=== PATIENT | female | born 1980 | race Caucasian/White ===

== ENCOUNTER 2016-11-18 02:24 | Observation (INO) | payer OTHER ==
[2016-11-18] MEDS ORDERED: ONDANSETRON HCL INJ/PF 4 MG/2 ML SDV IV ONE (02:54)
--- NOTE | 2016-11-18 02:58 | ER Document Report ---
ED General - General Chief Complaint: Nausea/Vomiting Stated Complaint: VOMITING Time Seen by Provider: 11/18/16 02:48 Notes: Patient is a 35-year-old female who presents with complaint of nausea vomiting for the last 7 hours. Last year she was taken to this. She did not eat any undercooked food. No fevers. No abdominal pain. No diarrhea. Her kids had vomiting illness last week. She has had a cholecystectomy in the past. No other abdominal surgeries. No dysuria. She has had some intermittent back pain for just over a week. No hematuria that she is aware of. TRAVEL OUTSIDE OF THE [place] IN LAST 30 DAYS: No - Related Data Allergies/Adverse Reactions: clarithromycin [From Biaxin] Allergy (Verified 11/18/16 03:10) gatifloxacin [From Tequin] Allergy (Verified 11/18/16 03:10) metronidazole [From Flagyl] Allergy (Verified 11/18/16 03:10) nitrofurantoin [From Macrobid] Allergy (Verified 11/18/16 03:10) Sulfa (Sulfonamide Antibiotics) Allergy (Verified 11/18/16 03:10) sulfamethoxazole [From Bactrim] Allergy (Verified 11/18/16 03:10) trimethoprim [From Bactrim] Allergy (Verified 11/18/16 03:10) ivp dye Allergy (Uncoded 11/18/16 03:10) Past Medical History - Social History Smoking Status: Unknown if Ever Smoked Frequency of alcohol use: None Drug Abuse: None Family History: Reviewed & Not Pertinent Patient has suicidal ideation: No Patient has homicidal ideation: No Renal/ Medical History: Denies: Hx Peritoneal Dialysis Review of Systems - Review of Systems Notes: My Normal Review Basic REVIEW OF SYSTEMS: CONSTITUTIONAL : Denies fever, chills, or sweats. Denies recent illness. CARDIOVASCULAR: Denies chest pain. RESPIRATORY: Denies cough, cold, or chest congestion. Denies shortness of breath, difficulty breathing, or wheezing. GASTROINTESTINAL: Denies abdominal pain. Recurrent vomiting. GENITOURINARY: Denies difficulty urinating, painful urination, burning, frequency, or blood in urine. MUSCULOSKELETAL: Intermittent back pain. SKIN: Denies rash or skin lesions. NEUROLOGICAL: Denies altered mental status or loss of consciousness. ALL OTHER SYSTEMS REVIEWED AND NEGATIVE. Physical Exam - Vital signs Vitals: Temp Pulse Resp BP Pulse Ox 98.2 F 138 H 17 146/101 H 93 11/18/16 02:29 11/18/16 02:29 11/18/16 02:29 11/18/16 02:29 11/18/16 02:29 - Notes Notes: General Appearance: Well nourished, alert, cooperative, no acute distress, no obvious discomfort. Vitals: reviewed, See vital signs table. Head: no swelling or tenderness to the head Eyes: PERRL, EOMI, Conjuctiva clear Mouth: No decreasd moisture Neck: Supple, no neck tenderness, No thyromegaly Lungs: No wheezing, No rales, No rhonci, No accessory muscle use, good air exchange bilaterally. Heart: Tachycardic rate, Regular rythm, No murmur, no rub Abdomen: Normal BS, soft, No rigidity, No abdominal tenderness, No guarding, no rebound, no abdominal masses, no organomegaly Extremities: strength 5/5 in all extremities, good pulses in all extremities, no swelling or tenderness in the extremities, no edema. Skin: warm, dry, appropriate color, no rash Neuro: speech clear, oriented x 3, normal affect, responds appropriately to questions. Course - Vital Signs Vital signs: Temp Pulse Resp BP Pulse Ox 98.2 F 103 H 22 H 110/75 96 11/18/16 02:29 11/18/16 03:21 11/18/16 03:21 11/18/16 07:01 11/18/16 07:01 - Laboratory Result Diagrams: 11/18/16 02:55 11/18/16 02:55 Laboratory results interpreted by me: 11/18/16 11/18/16 11/18/16 02:55 02:55 02:55 WBC 12.1 H RBC 5.29 H Seg Neuts % (Manual) 94 H Band Neutrophils % 1 L Lymphocytes % (Manual) 4 L Monocytes % (Manual) 1 L Abs Neuts (Manual) 11.5 H Potassium 3.2 L Glucose 128 H Magnesium 1.5 L - Transfer of Care Notes: 11/18/16 07:30 My concern is that the patient's ambulation. He does not ambulate well on its own. Patient's younger son is at bedside and said he felt today because he was not using his walker he went to the bathroom. Patient and son both say that he does fairly well with a walker. Some of his ataxia could be related to a bulging disc most likely in his neck. I suspect that she does have some numbness going into his arms. On exam he does not have actual weakness in his legs or hands he does have neck pain as well as numbness going into his hands. I informed him that he really needs an MRI of his neck to investigate this further. He has no findings that would be consistent with a surgical emergency and therefore I do not think I need to transfer him to have an MRI performed. He has no urinary incontinence. He has no bowel incontinence. He was able to urinate here without any difficulty. All his blood work is normal appearing. His no signs of infection. He is very awake and alert his mind is very sharp. His youngest brother is at bedside and also is in very good health. I did talk to the patient about potentially considering a assisted living versus living family. Patient says he has a follow-up appointment with his doctor on Sunday and would like to discuss this further with his doctor Sunday. His brother is at bedside that he would help care for the patient look after him until he follows up with his doctor on Sunday. I did type up all my concerns in his discharge paperwork and told him to bring discharge paperwork with him to his doctor's appointment so that they can review it and see my concerns as well and hopefully arrange for the MRI. I encouraged patient to return to ER immediately if he has worsening of his symptoms or has any further concerns. Patient and his brother agree with plan and he will be discharged home. Dictation of this chart was performed using voice recognition software; therefore, there may be some unintended grammatical errors. Discharge - Discharge Clinical Impression: Hypokalemia, Hypomagnesemia Vomiting Qualifiers: Vomiting type: unspecified Vomiting Intractability: unspecified Nausea presence : with nausea Qualified Code(s): R11.2 - Nausea with vomiting, unspecified Condition: Good Additional Instructions: VOMITING: Vomiting (or nausea without vomiting) can be caused by many other different problems. It can mean that something's wrong with the stomach, such as ulcers or inflammation or the intestinal tract, such as appendicitis. But it can also be a symptom of a problem that has nothing to do with the stomach or intestines. Vomiting is common with severe headaches, earaches, tonsillitis, and kidney infections, etc. We see it with pneumonia or heart attacks. Drugs can cause nausea and vomiting. Many abdominal problems cause vomiting; for example, gallstones, kidney stones, pancreatitis, and intestinal obstruction ( blocked bowels). In most cases, curing the vomiting depends on fixing the problem that caused it. For temporary relief, we may use an anti-nausea medicine. For home use, we can prescribe suppositories, chewable pills, pills that dissolve in the mouth, or liquid anti-nausea drugs. If the vomiting seems to be caused by a problem in the stomach, acid-suppressing drugs may be prescribed as well. It's important to avoid dehydration. Sip small amounts of clear liquids ( soft drinks, tea, broth, etc) . Try to take fluids frequently even if you are vomiting to prevent dehydration. Take increasing amounts of fluid and when liquids are being consumed successfully, advance to small amounts of bland food (toast, soups, mashed potatoes, etc.) until you are able to resume a regular diet. Avoid aspirin, tobacco, and alcohol. If the vomiting worsens, if the problem that's making you vomit worsens, or if there's evidence of bleeding in the stomach (such as black, tarry stool, or bloody or black vomit), you should return immediately. Also, return if abdominal pain worsens or becomes localized to one area or you develop high fever. Call your doctor if you aren't improved in 24 hours. INTRAVENOUS (I V) FLUIDS: As part of your care today, you received intravenous (IV) fluids. IV fluids are administered to patients who are dehydrated or to those who have certain chemical (electrolyte) abnormalities that need correcting. ANTINAUSEA MEDICATION: You have been given a medication to suppress nausea and vomiting. This type of medication can be given as a shot, pill, or suppository. It will usually last for many hours. Pills and shots usually last six to eight hours. For the typical illness, only one or two doses of the medication may be necessary. Mild lightheadedness may occur. This type of medicine can cause drowsiness. Do not drive or operate dangerous machinery while under its influence. Do not mix with alcohol. See your doctor at once if you have muscle spasms or tightness, or uncontrollable motions (particularly of the neck, mouth, or jaw). Persistent vomiting or severe lightheadedness should also be evaluated by the physician. FOLLOW-UP CARE: If you have been referred to a physician for follow-up care, call the physician s office for an appointment as you were instructed or within the next two days. If you experience worsening or a significant change in your symptoms, notify the physician immediately or return to the Emergency Department at any time for re-evaluation. Please return to the ER immediately if you have recurrent vomiting despite taking the medications, fevers, abdominal pain, or feel unwell.
[2016-11-18 03:06] LABS: HEMATOCRIT 45.3 % (36.0-47.0); HEMOGLOBIN 15.2 g/dL (12.0-15.5); HGB HCT DIFFERENCE 0.3; MEAN CORPUSCULAR HEMOGLOBIN 28.8 pg (27.0-33.4); MEAN CORPUSCULAR HGB CONC 33.6 g/dL (32.0-36.0); MEAN CORPUSCULAR VOLUME 86 fl (80-97); RED BLOOD COUNT 5.29 10^6/uL (3.72-5.28); WHITE BLOOD COUNT 12.1 10^3/uL (4.0-10.5)
[2016-11-18] MEDS: NORMAL SALINE 1000 ML 1,000 ML IV PRN ×3 (03:13→21:51)
[2016-11-18 03:18] LABS: ALANINE AMINOTRANSFERASE 34 U/L (9-52); ALBUMIN 4.3 g/dL (3.5-5.0); ALKALINE PHOSPHATASE 83 U/L (38-126); ANION GAP 12 (5-19); ASPARTATE AMINO TRANSFERASE 24 U/L (14-36); BILIRUBIN,DIRECT 0.4 mg/dL (0.0-0.4); BILIRUBIN,TOTAL 0.8 mg/dL (0.2-1.3); BLOOD UREA NITROGEN 17 mg/dL (7-20); CALCIUM 9.4 mg/dL (8.4-10.2); CARBON DIOXIDE 28 mmol/L (22-30); CHLORIDE 101 mmol/L (98-107); GLUCOSE 128 mg/dL (75-110); LIPASE 87.2 U/L (23-300); POTASSIUM 3.2 mmol/L (3.6-5.0); SODIUM 140.9 mmol/L (137-145); TOTAL PROTEIN 7.7 g/dL (6.3-8.2)
[2016-11-18 03:29] LABS: BAND NEUTROPHILS % (MANUAL) 1 % (3-5); BASOPHILS % (MANUAL) 0 % (0-2); EOSINOPHILS % (MANUAL) 0 % (0-6); LYMPHOCYTES % (MANUAL) 4 % (13-45); TOTAL CELLS COUNTED 100
[2016-11-18 03:31] LABS: ANISOCYTOSIS SLIGHT; TOXIC GRANULATION 1+; TOXIC VACUOLATION PRESENT
[2016-11-18 03:32] LABS: POIKILOCYTOSIS SLIGHT; STOMATOCYTES SLIGHT
[2016-11-18] MEDS ORDERED: POTASSIUM CHLORIDE 10 MEQ TABLET.SA PO ONE (03:56)
[2016-11-18] MEDS ORDERED: PROMETHAZINE HCL INJ 50 MG/1 ML VIAL IM ONE (03:58)
[2016-11-18] MEDS: MAGNESIUM SULFATE/D5W 100 ML IV SCH ×2 (04:33→05:09)
[2016-11-18 04:48] LABS: APPEARANCE,URINE CLEAR; BILIRUBIN,URINE NEGATIVE (NEGATIVE); GLUCOSE, URINE NEGATIVE (NEGATIVE); KETONES,URINE NEGATIVE (NEGATIVE); LEUKOCYTE ESTERASE,URINE NEGATIVE (NEGATIVE); NITRITE,URINE NEGATIVE (NEGATIVE); PROTEIN,URINE NEGATIVE (NEGATIVE); URINE SPECIFIC GRAVITY 1.006; UROBILINOGEN,URINE NEGATIVE mg/dL (<2.0)
[2016-11-18] MEDS ORDERED: DIPHENHYDRAMINE HCL 50 MG/ML VIAL IV ONE (05:29)
[2016-11-18] MEDS ORDERED: PROMETHAZINE HCL INJ 50 MG/1 ML VIAL ONE (05:52)
[2016-11-18] MEDS ORDERED: METOCLOPRAMIDE HCL INJ/PF 10 MG/2 ML SDV IV ONE ×2 (06:19→07:27)
[2016-11-18] MEDS ORDERED: PROMETHAZINE HCL 25 MG SUPP.RECT PR PRN (07:40)
[2016-11-18] MEDS ORDERED: ONDANSETRON HCL INJ/PF 4 MG/2 ML SDV IV PRN (07:40)
[2016-11-18] MEDS ORDERED: MAGNESIUM SULFATE/D5W 100 ML IV SCH (08:30)
[2016-11-18] MEDS ORDERED: FAMOTIDINE INJ/PF 20 MG/2 ML SDV IV ONE (09:15)
[2016-11-18 10:16] LABS: URINE BARBITURATES SCREEN NEGATIVE; URINE METHADONE SCREEN NEGATIVE; URINE OPIATES LOW NEGATIVE; URINE PHENCYCLIDINE SCREEN NEGATIVE
[2016-11-18] MEDS: POTASSI CL 20 MEQ/50 ML RIDER 50 ML IV SCH ×3 (10:33→14:01)
[2016-11-18] MEDS ORDERED: NORMAL SALINE 1000 ML 2,000 ML IV ONE (15:50)
[2016-11-18] MEDS ORDERED: ZOLPIDEM TARTRATE 5 MG TABLET PO PRN (15:52)
--- NOTE | 2016-11-18 15:59 | PDOC H&P ---
History of Present Illness Admission Date/PCP: 11/18/16 07:40 History of Present Illness: CELESTINA JULIAN is a 35 year old female with a past medical history of GERD, fibromyalgia, hypertension, IBS who presents to emergency department with complaints of vomiting. Starting approximately 730 last evening patient began having episodes of nonbilious emesis. Patient has had multiple episodes of emesis both in her hotel and in the emergency department. Despite IV fluids, Zofran, Phenergan, and Reglan patient continues to have nausea vomiting and has been referred to the hospital service for intractable nausea vomiting. Patient denies any raw or undercooked meat, foreign travel, but does have a sick contact in that her children had a similar episode several weeks ago. Past Medical History Cardiac Medical History: Reports: Hypertension GI Medical History: Reports: Gastroesophageal Reflux Disease Psychiatric Medical History: Reports: Depression Past Surgical History Past Surgical History: Reports: Cholecystectomy, Hysterectomy, Orthopedic Surgery - foot Social History Smoking Status: Never Smoker Frequency of Alcohol Use: Rare Hx Recreational Drug Use: No Drugs: None Hx Prescription Drug Abuse: No - Advance Directive Resuscitation Status: Full Code Surrogate healthcare decision maker:: Family History Family History: Reviewed & Not Pertinent, Hypertension, Malignancy Parental Family History Reviewed: Yes Children Family History Reviewed: Yes Sibling(s) Family History Reviewed.: Yes Medication/Allergy Home Medications: Duloxetine HCl 30 mg PO DAILY 11/18/16 Esomeprazole Magnesium [Nexium] 40 mg PO DAILY 11/18/16 Estradiol [Estrace] 0.5 mg PO QHS 11/18/16 Eszopiclone [Lunesta] 3 mg PO QHS 11/18/16 Hydrochlorothiazide 25 mg PO DAILY 11/18/16 Allergies/Adverse Reactions: clarithromycin [From Biaxin] Allergy (Verified 11/18/16 07:47) gatifloxacin [From Tequin] Allergy (Verified 11/18/16 07:47) metronidazole [From Flagyl] Allergy (Verified 11/18/16 07:47) nitrofurantoin [From Macrobid] Allergy (Verified 11/18/16 07:47) Sulfa (Sulfonamide Antibiotics) Allergy (Verified 11/18/16 07:47) sulfamethoxazole [From Bactrim] Allergy (Verified 11/18/16 07:47) trimethoprim [From Bactrim] Allergy (Verified 11/18/16 07:47) ivp dye Allergy (Uncoded 11/18/16 07:47) Review of Systems Constitutional: PRESENT: anorexia. ABSENT: chills, fever(s), headache(s), weight gain, weight loss Eyes: ABSENT: visual disturbances Ears: ABSENT: hearing changes Cardiovascular: ABSENT: chest pain, dyspnea on exertion, edema, orthropnea, palpitations Respiratory: ABSENT: cough, hemoptysis Gastrointestinal: PRESENT: heartburn, nausea, vomiting. ABSENT: abdominal pain , constipation, diarrhea, hematemesis, hematochezia, melena Genitourinary: ABSENT: dysuria, hematuria Musculoskeletal: ABSENT: joint swelling Integumentary: ABSENT: rash, wounds Neurological: ABSENT: abnormal gait, abnormal speech, confusion, dizziness, focal weakness, syncope Psychiatric: ABSENT: anxiety, depression, homidical ideation, suicidal ideation Endocrine: ABSENT: cold intolerance, heat intolerance, polydipsia, polyuria Hematologic/Lymphatic: ABSENT: easy bleeding, easy bruising Physical Exam Vital Signs: Temp Pulse Resp BP Pulse Ox 99.1 F 126 H 20 119/73 98 11/18/16 15:04 11/18/16 15:06 11/18/16 15:06 11/18/16 15:06 11/18/16 15:06 Intake & Output 11/17/16 11/18/16 11/19/16 06:59 06:59 06:59 Output Total 700 Balance -700 General appearance: PRESENT: mild distress, morbidly obese, well-developed, well -nourished Head exam: PRESENT: atraumatic, normocephalic Eye exam: PRESENT: conjunctiva pink, EOMI, PERRLA. ABSENT: scleral icterus Ear exam: PRESENT: normal external ear exam Mouth exam: PRESENT: dry mucosa, tongue midline Neck exam: ABSENT: JVD, lymphadenopathy, thyromegaly, tracheal deviation Respiratory exam: PRESENT: clear to auscultation antonella. ABSENT: rales, rhonchi, wheezes Cardiovascular exam: PRESENT: RRR, +S1, +S2. ABSENT: diastolic murmur, gallop, rubs, systolic murmur Pulses: PRESENT: normal dorsalis pedis pul Vascular exam: PRESENT: normal capillary refill GI/Abdominal exam: PRESENT: normal bowel sounds, soft. ABSENT: distended, guarding, mass, organolmegaly, rebound, tenderness Rectal exam: PRESENT: deferred Extremities exam: PRESENT: full ROM. ABSENT: calf tenderness, clubbing, pedal edema Neurological exam: PRESENT: alert, awake, oriented to person, oriented to place , oriented to time, oriented to situation, CN II-XII grossly intact. ABSENT: motor sensory deficit Psychiatric exam: PRESENT: appropriate affect, normal mood. ABSENT: homicidal ideation, suicidal ideation Skin exam: PRESENT: dry, intact, warm. ABSENT: cyanosis, rash Assessment & Plan - Diagnosis (1) Intractable vomiting Qualifiers: Vomiting type: unspecified Nausea presence: with nausea Qualified Code(s): R11.2 - Nausea with vomiting, unspecified Is this a current diagnosis for this admission?: YesPlan: We will hydrate patient and observe for electrolyte derangements. Likely secondary to viral gastroenteritis. Will obtain a KUB however. Place patient on Zofran, Phenergan, and will consider the addition of Ativan or Haldol if patient's vomiting does not cease. (2) IBS (irritable bowel syndrome) Qualifiers: Irritable bowel syndrome type: with both diarrhea and constipation Qualified Code(s): K58.2 - Mixed irritable bowel syndrome Is this a current diagnosis for this admission?: YesPlan: obtain KUB and suspect constipation (3) GERD (gastroesophageal reflux disease) Qualifiers: Esophagitis presence: esophagitis presence not specified Qualified Code(s): K21.9 - Gastro-esophageal reflux disease without esophagitis Is this a current diagnosis for this admission?: YesPlan: Patient on PPI (4) Fibromyalgia Is this a current diagnosis for this admission?: Yes (5) Hypokalemia Is this a current diagnosis for this admission?: YesPlan: Replete and recheck (6) Hypomagnesemia Is this a current diagnosis for this admission?: YesPlan: Recheck (7) Morbid obesity Qualifiers: Obesity type: due to excess calories Qualified Code(s): E66.01 - Morbid (severe) obesity due to excess calories Is this a current diagnosis for this admission?: Yes - Time Time Spent: 30 to 50 Minutes Medications reviewed and adjusted accordingly: Yes Anticipated discharge: Home Within: within 24 hours - Inpatient Certification Based on my medical assessment, after consideration of the patient's comorbidities, presenting symptoms, or acuity I expect that the services needed warrant INPATIENT care.: No I certify that my determination is in accordance with my understanding of Medicare's requirements for reasonable and necessary INPATIENT services [42 CFR 412.3e].: No
[2016-11-18] MEDS: MAGNESIUM SULFATE 1 GM/D5W 100 ML IV SCH ×2 (16:19→17:41)
[2016-11-18] MEDS: ACETAMINOPHEN 650 MG SUPP.RECT PR PRN ×2 (16:24→20:32)
--- NOTE | 2016-11-18 17:49 | RADIOLOGY REPORT (SQ) ---
EXAM DESCRIPTION: KUB/ABDOMEN (SINGLE VIEW) COMPLETED DATE/TIME: 11/18/2016 5:38 pm REASON FOR STUDY: n/v COMPARISON: None. NUMBER OF VIEWS: One view. TECHNIQUE: Supine radiographic image of the abdomen acquired. LIMITATIONS: None. FINDINGS: BOWEL GAS PATTERN: Normal bowel gas pattern. No dilated loops. CALCIFICATIONS: No suspicious calcifications. SOFT TISSUES: No gross mass or suggestion of organomegaly. HARDWARE: None in the abdomen. BONES: No acute fracture. No worrisome bone lesions. OTHER: No other significant finding. IMPRESSION: NO RADIOGRAPHIC EVIDENCE FOR ACUTE ABDOMINAL DISEASE. TECHNICAL DOCUMENTATION: JOB ID: [id number] [employer]- All Rights Reserved
[2016-11-18] MEDS ORDERED: (PENDING PHARMACY ID) (Estradiol [Estrace] 0.5 MG) PO SCH (22:00)
[2016-11-19] MEDS: NORMAL SALINE 1000 ML 1,000 ML IV PRN ×2 (05:21→13:16)
[2016-11-19] MEDS: ACETAMINOPHEN 650 MG SUPP.RECT PR PRN (05:45)
[2016-11-19 06:24] LABS: ANION GAP 9 (5-19); BLOOD UREA NITROGEN 6 mg/dL (7-20); CARBON DIOXIDE 22 mmol/L (22-30); CHLORIDE 107 mmol/L (98-107); CREATININE RESULT 0.56 mg/dL (0.52-1.25); GLUCOSE 91 mg/dL (75-110); MAGNESIUM 2.2 mg/dL (1.6-2.3); SODIUM 138.4 mmol/L (137-145)
[2016-11-19 06:39] LABS: POTASSIUM 2.7 mmol/L (3.6-5.0)
[2016-11-19] MEDS ORDERED: KETOROLAC TROMETHAMINE INJ/PF 30 MG/1 ML SDV IV ONE (07:00)
[2016-11-19] MEDS ORDERED: CALCIUM GLUCONATE 1,000 MG in DEXTROSE 5%-WATER 50 ML IV ONE (07:00)
[2016-11-19] MEDS ORDERED: POTASSIUM CHLORIDE 10 MEQ TABLET.SA PO ONE ×2 (07:00→12:00)
[2016-11-19] MEDS: POTASSIUM CHLORIDE 20 MEQ/50 ML RTU IV SCH ×2 (07:20→09:57)
[2016-11-19] MEDS ORDERED: CALCIUM GLUCONATE 1000 MG/10 ML INJ IV ONE ×3 (07:31→16:15)
[2016-11-19] MEDS ORDERED: LANSOPRAZOLE 30 MG TAB.RAP.DR PO SCH (08:00)
[2016-11-19] MEDS ORDERED: DULOXETINE HCL 30 MG CAPSULE.DR PO SCH (10:00)
--- NOTE | 2016-11-19 13:46 | PDOC DISCHARGE SUMMARY ---
General - Admit/Disc Date/PCP Admission Date/Primary Care Provider: 11/18/16 07:40 Discharge Date: 11/19/16 - Discharge Diagnosis (1) Viral gastroenteritis Is this a current diagnosis for this admission?: Yes (2) Intractable vomiting Is this a current diagnosis for this admission?: Yes (3) IBS (irritable bowel syndrome) Is this a current diagnosis for this admission?: Yes (4) GERD (gastroesophageal reflux disease) Is this a current diagnosis for this admission?: Yes (5) Fibromyalgia Is this a current diagnosis for this admission?: Yes (6) Hypokalemia Is this a current diagnosis for this admission?: Yes (7) Hypomagnesemia Is this a current diagnosis for this admission?: Yes (8) Morbid obesity Is this a current diagnosis for this admission?: Yes - Additional Information Resuscitation Status: Full Code Discharge Diet: As Tolerated Discharge Activity: Activity As Tolerated Home Medications: Duloxetine HCl 30 mg PO DAILY 11/18/16 Esomeprazole Magnesium [Nexium] 40 mg PO DAILY 11/18/16 Estradiol [Estrace] 0.5 mg PO QHS 11/18/16 Eszopiclone [Lunesta] 3 mg PO QHS 11/18/16 Hydrochlorothiazide 25 mg PO DAILY 11/18/16 Ondansetron [Zofran Odt 4 mg Tablet] 1 - 2 tab PO Q4HP PRN #10 tab.rapdis History of Present Illness History of Present Illness: CELESTINA JULIAN is a 35 year old female with a past medical history of GERD, fibromyalgia, hypertension, IBS who presents to emergency department with complaints of vomiting. Starting approximately 730 last evening patient began having episodes of nonbilious emesis. Patient has had multiple episodes of emesis both in her hotel and in the emergency department. Despite IV fluids, Zofran, Phenergan, and Reglan patient continues to have nausea vomiting and has been referred to the hospital service for intractable nausea vomiting. Patient denies any raw or undercooked meat, foreign travel, but does have a sick contact in that her children had a similar episode several weeks ago. Hospital Course Hospital Course: Patient was monitored overnight on observation and hydrated. patient had resolution of her nausea/vomiting. Electrolytes were corrected prior to discharge. Remainder of hospital course was unremarkable. patient was able to tolerate po prior to discharge. Physical Exam Vital Signs: Temp Pulse Resp BP Pulse Ox 99.3 F 85 18 121/79 94 11/19/16 07:53 11/19/16 12:10 11/19/16 12:10 11/19/16 12:10 11/19/16 08:22 Intake & Output 11/18/16 11/19/16 11/20/16 06:59 06:59 06:59 Intake Total 4290 Output Total 3400 Balance 890 Weight 100.3 kg Exam: General: A and O 3, no acute respiratory distress, HEENT: AT/NC, PERRL,EOMI, oropharynx is moist, pink, no scleral icterus, no conjunctival injection Neck: No JVD, trachea midline Chest: CTAB CV: Regular rate and rhythm Abdomen: Soft, nontender to palpation, nondistended, active bowel sounds; no rebound, rigidity, or guarding Extremities: No cyanosis, clubbing or edema Neuro: Cranial nerves II through XII are grossly intact without focal deficits; awake alert and oriented x3 Psych: Normal mood and affect Results Laboratory Results: 11/19/16 05:39 11/19/16 05:39 Sodium 138.4 Potassium 2.7 L* Chloride 107 Carbon Dioxide 22 Anion Gap 9 BUN 6 L Creatinine 0.56 Est GFR ( Amer) > 60 Est GFR (Non-Af Amer) > 60 Glucose 91 Calcium 6.4 L* Magnesium 2.2 Impressions: KUB X-Ray 11/18/16 00:00 IMPRESSION: NO RADIOGRAPHIC EVIDENCE FOR ACUTE ABDOMINAL DISEASE. Qualifiers PATEINT BEING DISCHARGED WITH ANY OF THE FOLLOWING DIAGNOSIS?: No Plan Time Spent: Less than 30 Minutes
[2016-11-19 14:37] LABS: ANION GAP 6 (5-19); BLOOD UREA NITROGEN 6 mg/dL (7-20); CARBON DIOXIDE 22 mmol/L (22-30); CHLORIDE 111 mmol/L (98-107); CREATININE RESULT 0.63 mg/dL (0.52-1.25); GLUCOSE 86 mg/dL (75-110); SODIUM 139.1 mmol/L (137-145)
[2016-11-19 14:49] LABS: POTASSIUM 3.7 mmol/L (3.6-5.0)
[2016-11-19 14:50] LABS: CALCIUM 6.8 mg/dL (8.4-10.2)
[2016-11-19 16:01] VITALS: BP 109/68
[2016-11-20 08:01] LABS: CALCIUM 6.4 mg/dL (8.4-10.2)
== END 2016-11-19 17:48 | disposition home or self-care (01) ==
LOC: ER 02:24 → 2N 07:40 → UNDOADMOB 07:57 → EH 07:57 → 2N 09:23 → EH 09:23
PROVIDERS: ADMIT Family Medicine; ATTEND Family Medicine
DX: A08.4 Viral intestinal infection, unspecified (principal); R11.10 Vomiting, unspecified; K58.2 Mixed irritable bowel syndrome; K21.9 Gastro-esophageal reflux disease without esophagitis; M79.7 Fibromyalgia; E87.6 Hypokalemia; E83.42 Hypomagnesemia; E66.01 Morbid (severe) obesity due to excess calories; Z68.41 Body mass index [BMI] 40.0-44.9, adult; Z90.49 Acquired absence of other specified parts of digestive tract; Z90.710 Acquired absence of both cervix and uterus; Z82.49 Family history of ischemic heart disease and other diseases of the circulatory system; Z80.9 Family history of malignant neoplasm, unspecified; Z79.899 Other long term (current) drug therapy
CPT/HCPCS: 99285; 96372; 96375; 96365; 96366; 36415 ×2; 82040; 83690; 83735 ×2; 84703; 85025; 80048; 80053; 81001; 80307; 74000; G0378 ×4; J0610; J1200; J1885; J2765; J3475; J2550; J3490; J2405; J3480 ×2; J7030 ×2; S0028